=== PATIENT | male | born 1990 | race Caucasian/White ===

== ENCOUNTER 2016-12-04 09:18 | Day surgery (SDC) | payer OTHER, SELFPAY ==
[2016-12-04] MEDS ORDERED: Dextrose 5%-Lactated Ringers 1,000 ML IV SCH (10:15)
[2016-12-04] MEDS ORDERED: Bupivacaine 0.5%/EPINEPHrine 1:200,000 50 ML MDV ONE (10:17)
[2016-12-04] MEDS ORDERED: Meropenem 500 MG SDV ONE (10:22)
[2016-12-04] MEDS ORDERED: Propofol 200 MG/20 ML SDV ONE (10:32)
[2016-12-04] MEDS ORDERED: Ondansetron 4 MG/2 ML SDV ONE (10:32)
[2016-12-04] MEDS ORDERED: Rocuronium 50 MG/5 ML Vial ONE (10:32)
[2016-12-04] MEDS ORDERED: Neostigmine Methylsulfate 1 MG/ML 5 ML Syringe ONE (10:32)
[2016-12-04] MEDS ORDERED: Glycopyrrolate 0.2 MG/ML 5 ML MDV ONE (10:32)
[2016-12-04] MEDS ORDERED: Dexamethasone 4 MG/ML SDV ONE (10:32)
[2016-12-04] MEDS ORDERED: Meropenem 500 MG in Sodium Chloride 0.9% 50 ML IV ONE (10:45)
[2016-12-04 14:30] VITALS: BP 124/95
--- NOTE | 2016-12-07 08:03 | OR ---
DATE OF PROCEDURE: 12/04/2016 PREOPERATIVE DIAGNOSIS: 1. Cystic soft tissue mass in a gluteal fold. 2. Early pilonidal cyst formation. OPERATIVE PROCEDURES: 1. Excision of cystic soft tissue mass in a gluteal fold (47784). 2. Excision of early formation of pilonidal cyst (78103). ANESTHESIA: General. INDICATION FOR PROCEDURE: A 26-year-old presenting with recurrent cystic soft tissue mass located in the gluteal fold. This was somewhat above what would typically be associated with a pilonidal cyst but it is causing some discomfort. The plan is to proceed with excision. The patient also has 2 pores down in the area that more typically is associated with pilonidal cyst formation and he wishes to have those areas excised concurrently. Potential risks including bleeding, infection, recurrence of the problem, nonhealing of the wounds requiring a period of open wound care were reviewed, and the patient wishes to proceed. DETAILS OF PROCEDURE: The patient was taken to the operating room and placed in a supine position. After general endotracheal anesthesia was induced, he was converted to a prone position and the area over the sacral and coccygeal regions prepped and draped. Initially, the elliptical incision was made around this cystic soft tissue mass in the area of gluteal fold. This was located close to midline but slightly to the right of the midline. This measured about a centimeter in size and the elliptical incision removed the entire lesion with normal appearing subcutaneous tissue at the plane of dissection. This incision was then closed with some 0 Vicryl stitch deep and then a 4-0 subcutaneous sutures. The area of the pores was then similarly excised with elliptical incision measuring around one and a half centimeters. The plane of dissection once again remained in a clean fat layer not entering into the area of the underlying pilonidal cyst and that specimen delivered from the field. There was no infection associated with it at this time. This incision was then closed, the deeper layers as above and then both sites were closed with skin doreen. Dressing was applied. The patient was taken to the recovery room in satisfactory condition. Adiran Guillen MD /[id number]
== END 2016-12-04 14:40 | disposition home or self-care (01) ==
LOC: JP.SDS 09:18
PROVIDERS: ATTEND Surgery
DX: L72.0 Epidermal cyst (principal); L05.91 Pilonidal cyst without abscess; F41.9 Anxiety disorder, unspecified; F32.9 Major depressive disorder, single episode, unspecified; E03.9 Hypothyroidism, unspecified
CPT/HCPCS: 11770; 27047; 36415; 80048; 85027; J1100; J2185; J2405; J2704; J3010; J7042; J7050; 88304

== ENCOUNTER 2016-12-22 12:10 | Emergency (ER) | payer OTHER, SELFPAY ==
[2016-12-22 13:03] VITALS: BP 125/69
--- NOTE | 2016-12-22 13:18 | EDM.PDOC ---
ED HPI GENERAL MEDICAL PROBLEM - General Chief Complaint: Skin Complaint Stated Complaint: STITCHES CAME UNDONE;LOOKS INFECTED Time Seen by Provider: 12/22/16 12:37 Source of Information: Reports: Patient History Limitations: Reports: No Limitations - History of Present Illness INITIAL COMMENTS - FREE TEXT/NARRATIVE: History of present illness: [18-year-old male presenting with a history of a pilonidal cyst removal he's had a little bit of the wound opening and they're concerned about that and wanted looked at.] Review of systems: As per history of present illness and below otherwise all systems reviewed and negative. Past medical history: As per history of present illness and as reviewed below otherwise noncontributory. Surgical history: As per history of present illness and as reviewed below otherwise noncontributory. Social history: No reported history of drug or alcohol abuse. Family history: As per history of present illness and as reviewed below otherwise noncontributory. Physical exam: HEENT: Atraumatic, normocephalic, Lungs: Clear to auscultation, Heart: S1S2, regular Abdomen: Soft, nondistended, nontender. Negative for masses or hepatosplenomegaly. Negative for costovertebral tenderness. Pelvis: Stable nontender. Genitourinary: Deferred. Buttocks: At the top of his wound he does have a little bit of dehiscence of his wound is about to 2 cm by half centimeter long official and looks clean there is no pustular discharge or excessive erythema or warmth about the wound. Is have a stitch that is present in the wound that was left alone. Extremities: Atraumatic, negative for cords or calf pain. Neurovascular unremarkable. Neuro: Awake, alert, oriented. Exam nonfocal. Diagnostics: [] Therapeutics: [] Impression: [Status post pilonidal cyst removal] Plan: [He's instructed in wound care this should heal up fine by secondary intention] Definitive disposition and diagnosis as appropriate pending reevaluation and review of above. Sacral Pain Score (Numeric/FACES): 1 - Related Data Allergies Allergy/AdvReac Type Severity Reaction Status Date / Time No Known Allergies Allergy Verified 12/04/16 09:35 Home Meds: Home Meds Sertraline [Zoloft] 100 mg PO QAM 12/04/15 [History] Amphetamine/Dextroamphetamine [Adderall XR] 20 mg PO DAILY 06/09/16 [History] Levothyroxine [Synthroid] 88 mcg PO DAILY 06/09/16 [History] Past Medical History HEENT History: Reports: Epistaxis, Impaired Vision, Other (See Below) Other HEENT History: "life threating infection in my left ear" Cardiovascular History: Reports: None Respiratory History: Reports: None Gastrointestinal History: Reports: None, Hemorrhoids, Other (See Below) Other Gastrointestinal History: pilondal cysts Genitourinary History: Reports: None Musculoskeletal History: Reports: Back Pain, Chronic, Fracture Other Musculoskeletal History: left arm and finger Neurological History: Reports: None Psychiatric History: Reports: ADD, ADHD, Anxiety, Depression Endocrine/Metabolic History: Reports: Hypothyroidism, Obesity/BMI 30+ Hematologic History: Reports: None Oncologic (Cancer) History: Reports: None Dermatologic History: Reports: Other (See Below) Other Dermatologic History: cyst on tailbone - Infectious Disease History Infectious Disease History: Reports: Chicken Pox - Past Surgical History Head Surgeries/Procedures: Reports: None Cardiovascular Surgical History: Reports: None Respiratory Surgical History: Reports: None GI Surgical History: Reports: Other (See Below) Other GI Surgeries/Procedures: pilonidal Male Surgical History: Reports: None Endocrine Surgical History: Reports: None Neurological Surgical History: Reports: None Musculoskeletal Surgical History: Reports: None Oncologic Surgical History: Reports: None Dermatological Surgical History: Reports: None Social & Family History - Family History Family Medical History: Noncontributory - Tobacco Use Smoking Status *Q: Never Smoker Second Hand Smoke Exposure: No - Caffeine Use Caffeine Use: Reports: Energy Drinks, Soda - Recreational Drug Use Recreational Drug Use: No ED ROS GENERAL - Review of Systems Review Of Systems: ROS reveals no pertinent complaints other than HPI. ED EXAM, SKIN/RASH Exam: See Below Course - Vital Signs Last Recorded V/S: Last Vital Signs Temp 37.1 C 12/22/16 12:56 Pulse 83 12/22/16 12:56 Resp 15 12/22/16 12:56 BP 125/69 12/22/16 12:56 Pulse Ox 95 12/22/16 12:56 Departure - Departure Time of Disposition: 13:16 Disposition: Home, Self-Care 01 Condition: Good Clinical Impression: S/P surgical removal of pilonidal cyst - Discharge Information Forms: ED Department Discharge Additional Instructions: As we discussed you can shower use soap and water keep the area clean and living use an ointment such as bacitracin to cover the wound and then a large Band-Aid until it heals up and this should heal up fine and you should have any trouble with it. If you do you can always return to the ER or follow up with Dr. Lloyd Guillen. It's unlikely that this will be necessary.
== END 2016-12-22 13:30 | disposition home or self-care (01) ==
LOC: JP.ED 12:10
DX: Z48.817 Encounter for surgical aftercare following surgery on the skin and subcutaneous tissue (principal); E03.9 Hypothyroidism, unspecified; E66.9 Obesity, unspecified; Z79.899 Other long term (current) drug therapy
CPT/HCPCS: 99283